=== PATIENT | female | born 1985 | race Caucasian/White ===

== ENCOUNTER 2016-10-14 19:31 | Emergency (ER) | payer OTHER ==
[2016-10-14 19:52] VITALS: BP 104/62
[2016-10-14] MEDS ORDERED: NS 0.9% 1000 ML* 1,000 ML BOLUS ONE (20:11)
[2016-10-14] MEDS ORDERED: Ondansetron INJ* 2 MG/ML VIAL IV ONE (20:11)
--- NOTE | 2016-10-14 20:14 | UC ---
Abdominal Pain Female HPI - HPI Summary HPI Summary: Nausea and diarrhea x 4 today, then 3 episodes of vomiting in the last 2 hours. Family had "stomach bug" last week. Denies fever or cough. Pt had - History of Current Complaint Chief Complaint: UCGeneralIllness Stated Complaint: nausea,vomiting Time Seen by Provider: 10/14/16 19:52 Hx Obtained From: Patient Hx Last Menstrual Period: 4 weeks post /had tubal ?: No Onset/Duration: Sudden Onset, Lasting Hours Timing: Constant Severity Initially: Moderate Severity Currently: Severe Location: Diffuse Radiates: No Aggravating Factor(s): Food, Movement, Deep Breaths Alleviating Factor(s): Vomiting Associated Signs and Symptoms: Positive: Nausea, Vomiting, Diarrhea. Negative: Fever, Cough, Blood in Stool, Urinary Symptoms Allergies/Adverse Reactions: Allergies Allergy/AdvReac Type Severity Reaction Status Date / Time No Known Allergies Allergy Verified 10/14/16 19:52 PMH/Surg Hx/FS Hx/Imm Hx Endocrine History Of: Denies: Diabetes Cardiovascular History Of: Denies: Cardiac Disorders Respiratory History Of: Reports: Asthma Denies: COPD GI/ History Of: Denies: Gastroesophageal Reflux, Ulcer Neurological History Of: Denies: TIA Psychological History Of: Denies: Anxiety Cancer History Of: Denies: Lung Cancer Other History Of: Negative For: HIV - Surgical History Surgical History: Yes Surgery Procedure, Year, and Place: 4 c-sections. tubal ligation - Family History Known Family History: Positive: None - Social History Lives: With Family Alcohol Use: None Substance Use Type: None Smoking Status (MU): Former Smoker Type: Cigarettes Amount Used/How Often: 1/2 PPD Length of Time of Smoking/Using Tobacco: 15 Years Have You Smoked in the Last Year: Yes When Did the Patient Quit Smoking/Using Tobacco: 1 1/2 months Household Exposure Type: Cigarettes - Immunization History Most Recent Influenza Vaccination: [id number] Review of Systems Constitutional: Negative Skin: Negative Eyes: Negative ENT: Negative Respiratory: Negative Cardiovascular: Negative Gastrointestinal: Vomiting, Diarrhea Genitourinary: Negative Motor: Negative Neurovascular: Negative Musculoskeletal: Negative Neurological: Negative Psychological: Negative All Other Systems Reviewed And Are Negative: Yes Physical Exam Triage Information Reviewed: Yes Appearance: Ill-Appearing - pale, vomiting on exam Vital Signs: Initial Vital Signs Temp 98.2 F 10/14/16 19:47 Pulse 61 10/14/16 19:47 Resp 17 10/14/16 19:47 BP 104/62 10/14/16 19:47 Pulse Ox 99 10/14/16 19:47 Vital Signs Reviewed: Yes Eye Exam: Normal Eyes: Positive: Conjunctiva Clear ENT Exam: Normal ENT: Positive: Normal ENT inspection, Hearing grossly normal, Pharynx normal, TMs normal Neck exam: Normal Respiratory Exam: Normal Respiratory: Positive: Chest non-tender, Lungs clear, Normal breath sounds, No respiratory distress, No accessory muscle use Cardiovascular Exam: Normal Cardiovascular: Positive: RRR, No Murmur Abdominal Exam: Other - surgical wound from c/s benign, no drainage Abdomen Description: Positive: Soft. Negative: Nontender - diffuse discomfort and nausea, Distended, Guarding, McBurney's Point Tenderness, Peritoneal Signs Bowel Sounds: Positive: Present Musculoskeletal Exam: Normal Neurological Exam: Normal Psychological Exam: Normal Re-Evaluation - Re-Evaluation First Eval Re-Evaluation Time: 20:37 Change: Unchanged - meds just given Second Eval Re-Evaluation Time: 20:57 Change: Improved - resting comfortably, abdominal exam performed Abd Pain Female Course/Dx - Differential Dx/Diagnosis Provider Diagnoses: acute nausea and vomiting Discharge - Discharge Plan Condition: Stable Disposition: HOME Prescriptions: Ondansetron TAB* [Zofran Tab*] 4 - 8 mg PO Q6H PRN #6 tab PRN Reason: Vomiting Patient Education Materials: Acute Nausea and Vomiting (ED) Additional Instructions: If you have fever, sharp abdominal pain, or vomiting longer than 48 hours, please return for care.
== END 2016-10-14 21:25 | disposition home or self-care (01) ==
LOC: UCCORT 19:31
DX: R11.2 Nausea with vomiting, unspecified (principal); R19.7 Diarrhea, unspecified; Z87.891 Personal history of nicotine dependence
CPT/HCPCS: 96361; 96374; 99212; G0463; J2405

== ENCOUNTER 2018-04-26 14:54 | Emergency (ER) | payer OTHER ==
[2018-04-26 15:16] VITALS: BP 128/83
[2018-04-26] MEDS ORDERED: Lidocaine 1% MPF* 2 ML VIAL ONE (16:32)
--- NOTE | 2018-04-26 16:35 | UC ---
Complaint Female HPI - HPI Summary HPI Summary: 32-year-old female presents with 2-3 week history of dysuria, frequency, urgency , occasional hematuria, vaginal itching, and a thick white-yellow foul-smelling vaginal discharge. Associated with some intermittent mild nausea and lower abdominal pain. Denies any fever, chills, chest pain, shortness of breath, vomiting, diarrhea, abnormal vaginal bleeding, back or flank pain. Patient does report unprotected intercourse with a male partner prior to onset of symptoms who she has learned has had multiple sexual partners. Unknown if partner is symptomatic or his current STI status. Past surgical history significant for tubal ligation. - History Of Current Complaint Chief Complaint: UCGU Stated Complaint: URINARY Time Seen by Provider: 04/26/18 15:37 Hx Obtained From: Patient Hx Last Menstrual Period: "sometime last month" ?: No - Hx tubal ligation Onset/Duration: Lasting Weeks Timing: Constant Pain Intensity: 0 Character: Burning Aggravating Factor(s): Urination Alleviating Factor(s): Nothing Associated Signs And Symptoms: Positive: Vaginal Discharge, Nausea. Negative: Fever, Back Pain, Vomiting(# Of Episodes =), Genital Swelling, Genital Blisters - Allergies/Home Medications Allergies/Adverse Reactions: Allergies Allergy/AdvReac Type Severity Reaction Status Date / Time No Known Allergies Allergy Verified 04/26/18 15:37 PMH/Surg Hx/FS Hx/Imm Hx - Additional Past Medical History Additional PMH: Noncontributory Previously Healthy: Yes - Surgical History Surgical History: Yes Surgery Procedure, Year, and Place: 4 c-sections. tubal ligation - Family History Family History: Noncontributory - Social History Alcohol Use: None Substance Use Type: None Smoking Status (MU): Heavy Every Day Tobacco Smoker Type: Cigarettes Amount Used/How Often: 1/2 PPD Length of Time of Smoking/Using Tobacco: Since Age 16 Have You Smoked in the Last Year: Yes When Did the Patient Quit Smoking/Using Tobacco: 1 1/2 months Household Exposure Type: Cigarettes - Immunization History Most Recent Influenza Vaccination: [id number] Review of Systems Constitutional: Negative Skin: Negative Respiratory: Negative Cardiovascular: Negative Gastrointestinal: Nausea Genitourinary: Dysuria, Hematuria, Frequency, Urgency, Vaginal/Penile Itching, Vaginal/Penile Discharge Is Patient Immunocompromised?: No All Other Systems Reviewed And Are Negative: Yes Physical Exam Triage Information Reviewed: Yes Appearance: Well-Appearing, No Pain Distress, Well-Nourished Vital Signs: Initial Vital Signs Temp 98.6 F 04/26/18 15:09 Pulse 84 04/26/18 15:09 Resp 16 04/26/18 15:09 BP 128/83 04/26/18 15:09 Pulse Ox 99 04/26/18 15:09 Vital Signs Reviewed: Yes Respiratory Exam: Normal Respiratory: Positive: Lungs clear, Normal breath sounds, No respiratory distress Cardiovascular: Positive: RRR, No Murmur Abdomen Description: Positive: Nontender, No Organomegaly, Soft. Negative: CVA Tenderness (R), CVA Tenderness (L) Bowel Sounds: Positive: Present Pelvic Exam: Positive: Other - Patient elected to to refer Neurological: Positive: Alert Skin Exam: Normal Diagnostics - Laboratory Diagnostic Studies Completed/Ordered: POC urinalysis 1+ leukocyte esterase Complaint Female Dx - Course Course Of Treatment: 32 year old female with 2-3 week history of dysuria, frequency, urgency, hematuria, mild intermittent nausea, and white-yellow foul smelling vaginal discharge. She reports sexually active with male partner she discovered had multiple partners. Unsure if he is symptomatic. Afebrile and non- toxic in appearance. Patient elects for GC, chlamydia, and trichomonas testing via urine and declines HIV or RPR testing at this time. Will treat for PID with ceftriaxone 250 mg IM and doxycycline 100 mg BID x 14 days pending these tests results. Patient to follow up with PCP and was encouraged to consider getting follow up testing including HIV and RPR. Verbalizes understanding and agrees with POC. - Differential Dx/Diagnosis Differential Diagnosis/HQI/PQRI: Pelvic Inflammatory Disease, Sexually Transmitted Disease, Urinary Tract Infection, Other - Bacterial vaginosis, vaginal yeast infection Provider Diagnoses: Pelvic inflammatory disease Discharge - Sign-Out/Discharge Documenting (check all that apply): Patient Departure All imaging exams completed and their final reports reviewed: No Studies - Discharge Plan Condition: Stable Disposition: HOME Prescriptions: Doxycycline Hyclate 100 mg PO BID #28 tablet Patient Education Materials: Pelvic Inflammatory Disease (ED) Referrals: Adrianne Ross MD [Primary Care Provider] - As Soon As Possible Additional Instructions: We are testing today for possible sexually transmitted infections including gonorrhea, chlamydia, and trichimonas. It will take 24-48 hours for these results. You were given a shot of antibiotic today called ceftriaxone 250 mg. Start doxycycline 100 mg 1 tab twice daily for 14 days. It is important that you complete the entire course even if you are feeling better. You should avoid sun exposure while taking this medication as you may burn more easily. If you must be outdoors, be sure to use sunscreen, wear long sleeves, and a hat. I strongly recommend that you follow up with your primary care provider for follow up testing including HIV and syphilis. Seek immediate medical attention in the emergency department if you develop fever greater than 100.5 F, have severe abdominal pain, persistent vomiting, abnormal vaginal bleeding, or any worsening of symptoms. - Billing Disposition and Condition Condition: STABLE Disposition: Home
[2018-04-26] MEDS: cefTRIAXone VIAL(*) 250 MG VIAL IM ONE (16:39)
== END 2018-04-26 16:50 | disposition home or self-care (01) ==
LOC: UCCORT 14:54
DX: N73.9 Female pelvic inflammatory disease, unspecified (principal); F17.210 Nicotine dependence, cigarettes, uncomplicated
CPT/HCPCS: 81003; 87086; 87491; 87591; 87661; 96372; 99212; G0463; J0696

== ENCOUNTER 2018-09-03 09:04 | Emergency (ER) | payer OTHER ==
[2018-09-03 10:26] VITALS: BP 129/70
--- NOTE | 2018-09-03 21:13 | UC ---
Course/Dx - Diagnoses Provider Diagnoses: Patient left without being seen Discharge - Sign-Out/Discharge Documenting (check all that apply): Post-Discharge Follow Up All imaging exams completed and their final reports reviewed: No Studies - Discharge Plan Disposition: LEFT WITHOUT BEING SEEN Referrals: Adrianne Ross MD [Primary Care Provider] - - Billing Disposition and Condition Disposition: Left Without Being Seen
== END 2018-09-03 11:10 | disposition left against medical advice (07) ==
LOC: UCCORT 09:04
DX: R68.89 Other general symptoms and signs (principal); Z53.21 Procedure and treatment not carried out due to patient leaving prior to being seen by health care provider

== ENCOUNTER 2019-06-17 08:56 | Emergency (ER) | payer OTHER ==
[2019-06-17 09:29] VITALS: BP 108/71
[2019-06-17 10:12] LABS: Influenza A Molecular NEGATIVE (Negative); Influenza B Molecular NEGATIVE (Negative)
--- NOTE | 2019-06-17 10:12 | UC ---
Throat Pain/Nasal Badiaziz HPI - HPI Summary HPI Summary: 34-year-old woman comes in with chief complaint of upper respiratory tract infection symptoms. Started 2 days ago when she's having body aches runny nose cough chest congestion and chest tightness. Patient is a smoker. Has not tried any hgla-mpv-vmuffyr medications. No fevers measured. Patient does have an albuterol inhaler but she could not find it. - History of Current Complaint Chief Complaint: UCRespiratory Stated Complaint: ACHY,ST,COUGH,BILATERAL EAR COMPLAINT Time Seen by Provider: 06/17/19 09:38 Hx Last Menstrual Period: 06/21/19 Pain Intensity: 2 - Allergies/Home Medications Allergies/Adverse Reactions: Allergies Allergy/AdvReac Type Severity Reaction Status Date / Time No Known Allergies Allergy Verified 06/17/19 09:24 PMH/Surg Hx/FS Hx/Imm Hx Previously Healthy: Yes Respiratory History: Asthma Other History Of: Negative For: HIV - Surgical History Surgical History: Yes Surgery Procedure, Year, and Place: 4 c-sections. tubal ligation - Family History Known Family History: Positive: None Family History: Noncontributory - Social History Alcohol Use: None Substance Use Type: None Smoking Status (MU): Light Every Day Tobacco Smoker Type: Cigarettes Amount Used/How Often: 4-5 CIGS DAILY Length of Time of Smoking/Using Tobacco: Since Age 16 Have You Smoked in the Last Year: Yes When Did the Patient Quit Smoking/Using Tobacco: 1 1/2 months Household Exposure Type: Cigarettes - Immunization History Most Recent Influenza Vaccination: [id number] Review of Systems All Other Systems Reviewed And Are Negative: Yes Constitutional: Positive: Other - see hpi Skin: Positive: Negative Eyes: Positive: Negative ENT: Positive: Sore Throat, Nasal Discharge, Sinus Congestion Respiratory: Positive: Shortness Of Breath, Cough Cardiovascular: Positive: Negative Gastrointestinal: Positive: Negative Motor: Positive: Negative Neurovascular: Positive: Negative Musculoskeletal: Positive: Myalgia Neurological: Positive: Negative Psychological: Positive: Negative Is Patient Immunocompromised?: No Physical Exam Triage Information Reviewed: Yes Appearance: No Pain Distress, Well-Nourished, Ill-Appearing - mild Vital Signs: Initial Vital Signs Temp 98.5 F 06/17/19 09:25 Pulse 110 06/17/19 09:25 Resp 16 06/17/19 09:25 BP 108/71 06/17/19 09:25 Pulse Ox 99 06/17/19 09:25 Vital Signs Reviewed: Yes Eye Exam: Normal Eyes: Positive: Conjunctiva Clear ENT: Positive: Pharyngeal erythema, Nasal congestion, Nasal drainage Neck: Positive: Supple Respiratory: Positive: Lungs clear, Normal breath sounds, No respiratory distress Cardiovascular: Positive: RRR Musculoskeletal: Positive: Strength Intact, ROM Intact Neurological: Positive: Alert, Muscle Tone Normal Psychological: Positive: Age Appropriate Behavior Skin Exam: Normal Throat Pain/Nasal Course/Dx - Course Course Of Treatment: Dinkey Mechanic: Boogie Izaguirre F ([id number]) Electric Motor Fitter: RISHI ( NUANCE) Report Date: 06/17/2019 09:50:00 Report Status: Final ====== Start of Report Content Patient Name: ROSS PANDA Medical Record#: [id number] Ordering Physician: Ab Hsu MD Acct.#: [id number] : Age: 34 Sex: F Location: [facility] Exam Date: 06/17/19949 ADM Status: REG ER Order Information: CHEST PA LAT 2 VWS Accession Number: [id number] CPT: 92401 INDICATION: Cough and congestion. COMPARISON: Comparison is made with a prior study from April 26, 2015. TECHNIQUE: Dual-energy PA and lateral views of the chest were obtained. FINDINGS: The heart is within normal limits in size. Mediastinal and hilar contours appear within normal limits. There is a small focal infiltrate in the right middle lobe this has a slightly nodular configuration in the PA view. The left lung appears clear. No pleural effusion is seen. IMPRESSION: RIGHT MIDDLE LOBE INFILTRATE MOST CONSISTENT WITH PNEUMONIA. RECOMMEND A FOLLOW-UP CHEST X-RAYS TO RESOLUTION. <Electronically signed by Boogie Izaguirre MD in [place]> 06/17/19 101 Dictated By: Boogie Izaguirre MD Dictated Date/Time : 06/17/19 101 Transcribed Date/Time: 06/17/191017 Copy to: CC:Adrianne Ross MD; Ab Hsu MD Imaging - [facility] - [facility] - [facility] [address] [address] ph ) ph [phone]) ph ([phone]) End of Report Content ==== I discussed the x-rays and other lab results with the patient. We'll treat with azithromycin and albuterol. Patient to follow-up with her primary care doctor in go the emergency department if worse or any questions or concerns. - Differential Dx/Diagnosis Provider Diagnosis: Pneumonia, Asthma Discharge ED - Sign-Out/Discharge Documenting (check all that apply): Patient Departure All imaging exams completed and their final reports reviewed: Yes - Discharge Plan Condition: Stable Disposition: HOME Prescriptions: Albuterol HFA INHALER* [Ventolin HFA Inhaler*] 2 puff INH Q4H PRN #1 mdi PRN Reason: Wheezing Azithromyxin NAVEEN (NF) [Z-Naveen (Zithromax) 250 mg tabs #6] 2 tab PO .TODAY, THEN 1 DAILY #6 tab GuaiFENesin DM* [Robitussin DM*] 10 ml PO Q4H PRN #180 ml PRN Reason: Cough Patient Education Materials: Community Acquired Pneumonia (ED), Asthma (ED) Referrals: Adrianne Ross MD [Primary Care Provider] - Additional Instructions: FOLLOW UP WITH YOUR DOCTOR. GO TO THE EMERGENCY DEPARTMENT IF NOT IMPROVING OR YOUR CONDITION WORSENS OR ANY QUESTIONS OR CONCERNS. - Billing Disposition and Condition Condition: STABLE Disposition: Home
== END 2019-06-17 10:35 | disposition home or self-care (01) ==
LOC: UCCORT 08:56
DX: J45.909 Unspecified asthma, uncomplicated (principal); J18.9 Pneumonia, unspecified organism; R09.89 Other specified symptoms and signs involving the circulatory and respiratory systems; R09.81 Nasal congestion; F17.210 Nicotine dependence, cigarettes, uncomplicated
CPT/HCPCS: 71046; 87651; 99212; G0463